=== PATIENT | male | born 1950 | race African-American/Black ===

== ENCOUNTER 2020-10-18 14:15 | Inpatient (IN) | payer MEDICARE, OTHER ==
[~2020-10-18] VITALS: Ht 165.1 cm; Wt 75.3 kg
--- NOTE | 2020-10-18 14:24 | NUR ---
pt [id number] from dialysis center from a half-way facility for altered mentation. pt was not dialized. pt arousable, respond to simple questions in tristanian. placed on monitor. stable vitals sloop captain. awaiting md greene.
--- NOTE | 2020-10-18 14:46 | NUR ---
dr bowser at bedside for eval.
--- NOTE | 2020-10-18 14:55 | NUR ---
iv line started, blood drawn and sent to lab.
[2020-10-18 15:15] LABS: POTASSIUM 3.7 mmol/L (3.5-5.1)
[2020-10-18 15:18] LABS: MAGNESIUM 2.4 mg/dL (1.8-2.4); PHOSPHORUS 7.5 mg/dL (2.5-4.9)
[2020-10-18 15:20] LABS: BASOPHILS # (AUTO) 0.1 K/uL (0.0-0.2); BASOPHILS % (AUTO) 1.9 % (0.0-2.0); EOSINOPHILS % (AUTO) 7.5 % (0.0-6.0); HEMATOCRIT 31 % (39-51); HEMOGLOBIN 9.7 g/dL (13.5-17.5); LYMPHOCYTES # (AUTO) 0.7 K/uL (0.8-4.8); LYMPHOCYTES % (AUTO) 14.7 % (20.0-44.0); MEAN CORPUSCULAR HGB CONC 32 g/dl (31.0-36.0); MEAN CORPUSCULAR VOLUME 103 fL (80-96); MONOCYTES # (AUTO) 0.6 K/uL (0.1-1.30); NEUTROPHILS # (AUTO) 2.9 K/uL (1.8-8.9); NEUTROPHILS % (AUTO) 62.9 % (43.0-81.0); PLATELET COUNT (AUTO) 179 K/uL (150-450); RED BLOOD CELL COUNT(AUTO) 2.98 MIL/uL (4.5-6.0); WHITE BLOOD COUNT (AUTO) 4.7 K/uL (4.3-11.0)
[2020-10-18 15:21] LABS: ALBUMIN 3.9 g/dL (3.4-5.0); BILIRUBIN,DIRECT 0.3 mg/dL (0.0-0.2); BILIRUBIN,TOTAL 0.7 mg/dL (0.2-1.0); TOTAL PROTEIN, SERUM 8.3 g/dL (6.4-8.2)
--- NOTE | 2020-10-18 15:26 | NUR ---
MOVE SHEET SUBMITTED AND CALLED FOR TELE BED.
[2020-10-18] MEDS ORDERED: CARV12.5 PO (15:42)
[2020-10-18] MEDS ORDERED: BISA10SU11 RC (15:42)
[2020-10-18] MEDS ORDERED: MIDO10TA PO (15:42)
[2020-10-18] MEDS ORDERED: HEPA0.5D3 IJ (15:42)
[2020-10-18] MEDS ORDERED: GABA-532 PO (15:42)
[2020-10-18] MEDS ORDERED: SUCR500T PO (15:42)
[2020-10-18] MEDS ORDERED: INSU100V10 SQ (15:42)
[2020-10-18] MEDS ORDERED: OMEP20TA5 PO (15:42)
[2020-10-18] MEDS ORDERED: LEVO125T8 PO (15:42)
[2020-10-18] MEDS ORDERED: ATOR10TA PO (15:42)
[2020-10-18] MEDS ORDERED: QUET25TA PO (15:42)
[2020-10-18] MEDS ORDERED: AMIO100T4 PO (15:42)
[2020-10-18] MEDS ORDERED: LINA5TAB PO (15:42)
[2020-10-18] MEDS ORDERED: NA P133E RC (15:42)
[2020-10-18] MEDS ORDERED: FOLI1CAP7 PO (15:42)
[2020-10-18] MEDS ORDERED: ACET325T53 PO (15:42)
[2020-10-18] MEDS ORDERED: EPOE40002 IJ (15:42)
[2020-10-18] MEDS ORDERED: ONDANSETRON HCL/PF 4 MG/2 ML VIAL IVP PRN (16:30)
[2020-10-18] MEDS ORDERED: BISACODYL SUPP (10 MG) 10 MG/SUPP.RECT SUPP.RECT RC PRN (16:30)
[2020-10-18] MEDS ORDERED: MIDODRINE HCL (5MG) 5 MG TABLET PO PRN (16:30)
[2020-10-18] MEDS ORDERED: NA PHOS,M-B/NA PHOS,DI-BA 1 EA ENEMA RC PRN (16:30)
[2020-10-18] MEDS ORDERED: EPOETIN ALFA (4000 UNIT) 4,000 UNIT/ML VIAL IJ SCH (16:30)
[2020-10-18] MEDS ORDERED: HOME MED MISCELLANEOUS XX SCH (16:30)
[2020-10-18] MEDS ORDERED: Z GUARD REMEDY 2 OZ OINT TP PRN (16:30)
[2020-10-18] MEDS ORDERED: ACETAMINOPHEN 325 MG TABLET PO PRN (16:30)
[2020-10-18] MEDS ORDERED: MAGNESIUM HYDROXIDE 30 ML UDC PO PRN (16:30)
[2020-10-18] MEDS ORDERED: MAG HYDROX/AL HYDROX/SIMETH 30 ML UDC PO PRN (16:30)
[2020-10-18] MEDS ORDERED: DEXTROSE 50%-WATER 50 ML DISP.SYRIN IV PRN (16:30)
--- NOTE | 2020-10-18 17:53 | NUR ---
tele [phone]
--- NOTE | 2020-10-18 17:59 | NUR ---
report given to amada. pt awaiting transfer t floor.
--- NOTE | 2020-10-18 19:00 | NUR ---
Patient received from ED at 1834pm. Vitals assessed and patient provided with tele box. Endorsed to oncoming shift for admission. HOB kept elevated.
[2020-10-18] MEDS: GABAPENTIN 100 MG CAPSULE PO SCH (19:42)
[2020-10-18] MEDS: SEVELAMER CARBONATE 800 MG TABLET PO SCH (19:42)
[2020-10-18] MEDS: QUETIAPINE FUMARATE 25 MG TABLET PO SCH (19:42)
[2020-10-18 20:00] VITALS: BP 120/41
--- NOTE | 2020-10-18 20:00 | NUR ---
EMERGENCY DISPATCHERBLACK LEATHER BUFFER NOTE RECEIVED PT IN BED WITH EYES CLOSED, AROUSABLE TO STIMULATION. A/O X2. PT IS CONFUSED AT TIMES, ABLE TO RESPOND TO SIMPLE QUESTIONS IN [place]. PT ON 2 LPM O2 VIA NC, SATURATING AT 95%. NO SOB OR S/S OF RESPIRATORY DISTRESS NOTED. PT ON EXTERNAL GROUNDSKEEPER PORTER READING SR AT 70 BPM. PT HAS NO C/O PAIN OR DISCOMFORT AT THIS TIME. IV ACCESS IN RIGHT AC #18, INTACT AND PATENT. PT NOTED WITH LEFT UPPER ARM SHUNT. SAFETY MEASURES MAINTAINED. BED IN LOWEST LOCKED POSITION, HOB ELEVATED, SIDE RAILS UP X2. CALL LIGHT AND TABLE WITHIN REACH. WILL CONTINUE TO MONITOR.
[2020-10-18] MEDS: PIPERACILLIN /TAZOBACTAM 2.25 G in IV D5W 50 ML IV SCH (20:24)
[2020-10-18] MEDS: HEPARIN SODIUM, PORCINE 5000 UNITS/1 ML VIAL SQ SCH (20:26)
[2020-10-18] MEDS: CARVEDILOL 12.5 MG TABLET PO SCH (20:28)
[2020-10-18] MEDS: BLOOD SUGAR DIAGNOSTIC 1 EACH STRIP IN SCH (22:00)
[2020-10-19] VITALS: BP 140/30
--- NOTE | 2020-10-19 03:30 | NUR ---
TRANSFERRED PT TO [facility] AND GAVE BEDSIDE REPORT FOR LUIGI.
[2020-10-19 04:00] VITALS: BP 135/40
[2020-10-19] MEDS: PIPERACILLIN /TAZOBACTAM 2.25 G in IV D5W 50 ML IV SCH ×3 (04:40→20:26)
--- NOTE | 2020-10-19 05:22 | NUR ---
RN notes Received from RN KVNG in bed resting comfortably. No distress noted. Breathing even and unlabored. On 2lpm via nasal cannula tolerating well. No physical manifestation of pain or discomfort. Kept clean and dry. Will endorse to next shift for continuity of care.
[2020-10-19 06:51] LABS: BASOPHILS # (AUTO) 0.1 K/uL (0.0-0.2); BASOPHILS % (AUTO) 1.8 % (0.0-2.0); EOSINOPHILS % (AUTO) 7.1 % (0.0-6.0); HEMATOCRIT 31 % (39-51); HEMOGLOBIN 9.9 g/dL (13.5-17.5); LYMPHOCYTES # (AUTO) 0.7 K/uL (0.8-4.8); LYMPHOCYTES % (AUTO) 14.1 % (20.0-44.0); MEAN CORPUSCULAR HGB CONC 32 g/dl (31.0-36.0); MEAN CORPUSCULAR VOLUME 103 fL (80-96); MONOCYTES # (AUTO) 0.5 K/uL (0.1-1.30); MONOCYTES % (AUTO) 11.3 % (2.0-12.0); NEUTROPHILS # (AUTO) 3.2 K/uL (1.8-8.9); NEUTROPHILS % (AUTO) 65.7 % (43.0-81.0); PLATELET COUNT (AUTO) 176 K/uL (150-450); RED BLOOD CELL COUNT(AUTO) 3.01 MIL/uL (4.5-6.0); WHITE BLOOD COUNT (AUTO) 4.9 K/uL (4.3-11.0)
[2020-10-19 06:53] LABS: CALCIUM, SERUM 9.1 mg/dL (8.5-10.1); MAGNESIUM 2.6 mg/dL (1.8-2.4); POTASSIUM 3.7 mmol/L (3.5-5.1)
[2020-10-19 06:56] LABS: THYROID STIMULATING HORMONE 9.369 uIU/mL (0.358-3.74)
--- NOTE | 2020-10-19 07:20 | NUR ---
RN OPENING NOTES RECEIVED PT IN BED, A/O X2. CONFUSED AT TIMES, ABLE TO FOLLOW SIMPLE COMMANDS. UNDERSTANDS TRINIDADIAN. ON 2L O2 VIA NC, SATURATING @95%. NO SOB OR ANY S/S OF RESPIRATORY DISTRESS NOTED. TELE MONITOR READING SR. NO PAIN REPORTED AT THIS TIME. IV ACCESS ON RAC #18, INTACT, PATENT AND FLUSHED. SETH SHUNT NOTED. SAFETY MEASURES IMPLEMENTED. CALL LIGHT WITHIN REACH. BED LOCKED AND IN LOWEST POSITION WITH SIDE RAILS UP X2. BED ALARM ON. WILL CONTINUE TO MONITOR.
[2020-10-19 07:45] LABS: CREATININE 7.6 mg/dL (0.6-1.3)
[2020-10-19 08:00] VITALS: BP 109/44
--- NOTE | 2020-10-19 08:00 | NUR ---
RN NOTES BS OF 75, NO INSULIN COVERAGE.
[2020-10-19] MEDS: ASPIRIN 81 MG TAB.CHEW PO SCH (08:53)
[2020-10-19] MEDS: SEVELAMER CARBONATE 800 MG TABLET PO SCH ×3 (08:53→17:55)
[2020-10-19] MEDS: VIT B CMPLX 3/FA/VIT C/BIOTIN 1 TAB TABLET PO SCH (08:54)
[2020-10-19] MEDS: GABAPENTIN 100 MG CAPSULE PO SCH ×3 (08:54→17:00)
[2020-10-19] MEDS: PANTOPRAZOLE 40 MG TABLET.DR PO SCH (08:54)
[2020-10-19] MEDS: LINAGLIPTIN 5 MG TABLET PO SCH (08:54)
[2020-10-19] MEDS: ATORVASTATIN 10 MG TABLET PO SCH (08:54)
[2020-10-19] MEDS: QUETIAPINE FUMARATE 25 MG TABLET PO SCH ×2 (08:54→17:00)
[2020-10-19] MEDS: LEVOTHYROXINE SODIUM 125 MCG TABLET PO SCH (08:54)
[2020-10-19] MEDS: CARVEDILOL 12.5 MG TABLET PO SCH ×2 (09:00→21:00)
[2020-10-19] MEDS: AMIODARONE HCL 200 MG TABLET PO SCH (09:00)
[2020-10-19] MEDS: BLOOD SUGAR DIAGNOSTIC 1 EACH STRIP IN SCH ×4 (09:08→21:55)
[2020-10-19] MEDS: HEPARIN SODIUM, PORCINE 5000 UNITS/1 ML VIAL SQ SCH ×2 (09:12→21:40)
--- NOTE | 2020-10-19 09:30 | NUR ---
RN NOTES SWALLOW EVAL DONE AT BEDSIDE WITH SPEECH THERAPIST. PT SPITS OUT WATER AND APPLE SAUCE. TRIED GIVING MEDS CRUSHED IN PUDDING PT SPITS OUT EVERYTHING.
[2020-10-19 12:00] VITALS: BP 154/60
--- NOTE | 2020-10-19 12:00 | NUR ---
RN NOTES ND REFUSED ACCU CHECK. RISK AND BENEFITS EXPLAINED, STILL REFUSED.
--- NOTE | 2020-10-19 12:30 | NUR ---
RN NOTES PT WILL START HD, WILL GIVE ZOSYN AFTER HD.
--- NOTE | 2020-10-19 13:00 | NUR ---
RN NOTES PT SPITS OUT MEDICATION.
--- NOTE | 2020-10-19 13:20 | NUR ---
RN NOTES PT STARTED HD, VS STABLE.
--- NOTE | 2020-10-19 15:00 | NUR ---
RN NOTES AT 1430 PT BP DROPPED TO 78/27, HD RN GAVE 200ML BOLUS. BP WENT UP TO 81/26. AT 1445 PT SUDDENLY PASSED OUT, UNRESPONSIVE AND PULSELESS. BP OF 97/29. INITIATED CODE BLUE AND STARTED CPR. CODE BLUE TEAM ARRIVED. BLOOD SUGAR CHECKED, 104. PT BECAME AWAKE AND RESPONSIVE AFTER 2 CYCLES OF CPR. PT ON 15L O2 VIA NRB, O2 SAT OF 100%, SWITCHED TO NASAL CANNULA 4L, O2 SAT @99%. VS STABLE. TELE MONITOR IN PLACE, READS SR. DR. EVERETT IVY ORDERED RESTRAINTS FOR PT PULLING OUT IV. WILL CONTINUE TO MONITOR.
[2020-10-19 16:00] VITALS: BP 99/51
--- NOTE | 2020-10-19 19:12 | NUR ---
RN NOTES PT RESTING IN BED. ON 4L O2 VIA NC, NO SOB OR ANY DISTRESS NOTED. NO PAIN REPORTED AT THIS TIME. REFUSED MEDS. NEEDS ATTENDED. KEPT CLEAN AND COMFORTABLE. SAFETY MEASURES IN PLACE. WILL ENDORSE TO NIGHT RN FOR LUIGI.
--- NOTE | 2020-10-19 19:30 | NUR ---
RN OPENING NOTES: RECEIVED PT A/OX2 IN BED SLEEPING COMFORTABLY. PATIENT IN NO S/SX OF ACUTE DISTRESS AT THIS TIME. NO SOB NOTED. PATIENT'S BREATHING IS EVEN AND UNLABORED. PATIENT IS ON 4L OF OXYGEN VIA NC; TOLERATING WELL. PATIENT ON TELE MONITORING READING SINUS RHYTHM HR IS @60s AT THE TIME OF RECEIVED. PATIENT ON RENAL STANDARD DIET; TOLERATES WELL. NOTED IV SITE ON R AC #18 ; PATENT, INTACT AND FLUSHING WELL; NO S/S OF INFECTION OR INFILTRATION. PT ALSO HAS L UA AV SHUNT SECURED AND INTACT NO SIGNS OF INFECTION. WITH BILATERAL SOFT RESTRAINTS IN PLACED, MONITORED AND ASSESSED PER PROTOCOL. SAFETY MEASURES HAVE BEEN PROVIDED AND IMPLEMENTED. PATIENT BED ALARM IS ON. HEAD OF BED ELEVATED. BED IS LOCKED, IN LOWEST POSITION AND SIDE RAILS UP. CALL LIGHT WITHIN REACH OF THE PATIENT. APPLICABLE ISOLATION PRECAUTIONS IN PLACE. WILL CONTINUE TO MONITOR AND REASSESS FOR ANY CHANGES AND WILL CARRY OUT ANY ONGOING AND ACTIVE MD ORDER.
[2020-10-19 20:00] VITALS: BP 90/52
[2020-10-19] MEDS: INSULIN REGULAR, HUMAN 100 UNIT/ML 3 ML VIAL SQ PRN (21:55)
--- NOTE | 2020-10-19 23:00 | NUR ---
RN NOTES PATIENT REMAINED TO BE IN NO SIGNS OF ACUTE RESPIRATORY DISTRESS , VITAL SIGNS WNL AT THIS TIME. SMOKE ROOM OPERATOR MADE AWARE. WILL CONTINUE TO MONITOR AND REASSESS FOR ANY CHANGES THROUGHOUT THE SHIFT.
[2020-10-20] VITALS (9 sets, daily range): BP systolic 66–134; BP diastolic 33–58
[2020-10-20] MEDS: PIPERACILLIN /TAZOBACTAM 2.25 G in IV D5W 50 ML IV SCH ×3 (03:53→20:07)
--- NOTE | 2020-10-20 04:00 | NUR ---
RN NOTES NO NOTED CHANGES IN PATIENT CONDITION AT THIS TIME; PATIENT VITALS STABLE, NO SIGNS OF ACUTE RESPIRATORY DISTRESS. AM PATIENT CARE RENDERED. PIANO MECHANIC MADE AWARE. WILL CONTINUE TO MONITOR AND REASSESS FOR ANY CHANGES THROUGHOUT THE SHIFT.
--- NOTE | 2020-10-20 07:07 | NUR ---
RN CLOSING NOTE: PATIENT REMAINS IN ROOM IN NO SIGNS OF RESPIRATORY DISTRESS, PATIENT STILL ON 4L OF 02 VIA NC ;TOLERATING WELL SATURATING @ >95% SP02. SAFETY MEASURES IMPLEMENTED, BED IN LOWEST POSITION, LOCKED, SIDE RAILS UP, CALL LIGHT WITHIN REACH. ALL NEEDS AND ORDERS ADDRESSED DURING THE SHIFT. IV ACCESS MAINTAINED INTACT, SECURED AND FLUSHING WELL. ALL DUE MEDS GIVEN ORDERED & SCHEDULED ; PATIENT TOLERATED WELL. PATIENT KEPT CLEAN AND COMFORTABLE WITHIN THE SHIFT. PATIENT ENDORSED TO INCOMING SHIFT RN WITH STABLE VITAL SIGN AND FOR CONTINUITY OF CARE.
--- NOTE | 2020-10-20 07:46 | NUR ---
POLICE INVESTIGATOR NOTES PATIENT IN BED ALERT/AWAKE WITH SOME CONFUSION. ON 3L N/C, NO SOB NOTED AT THIS TIME. PATIENT ON TELE MONITOR HR 70. PATIENT IS ON SOFT RESTRAINTS, CIRCULATION CHECKS, SKIN WARM AND DRY. LEFT AC HEP LOCK IN TACT AND IN PLACE, LEFT UPPER ARM AV SHUNT. BED LOCKED, IN LOWEST POSITION, CALL LIGHT WITHIN REACH, SAFETY MEASURES OBSERVED. WILL CONTINUE TO MONITOR CLOSELY.
[2020-10-20 08:14] LABS: CALCIUM, SERUM 8.9 mg/dL (8.5-10.1); POTASSIUM 3.7 mmol/L (3.5-5.1)
[2020-10-20] MEDS: LINAGLIPTIN 5 MG TABLET PO SCH (09:00)
[2020-10-20] MEDS: PANTOPRAZOLE 40 MG TABLET.DR PO SCH (09:09)
[2020-10-20] MEDS: ASPIRIN 81 MG TAB.CHEW PO SCH (09:09)
[2020-10-20] MEDS: QUETIAPINE FUMARATE 25 MG TABLET PO SCH (09:10)
[2020-10-20] MEDS: VIT B CMPLX 3/FA/VIT C/BIOTIN 1 TAB TABLET PO SCH (09:10)
[2020-10-20] MEDS: ATORVASTATIN 10 MG TABLET PO SCH (09:10)
[2020-10-20] MEDS: CARVEDILOL 12.5 MG TABLET PO SCH ×2 (09:13→21:15)
[2020-10-20] MEDS: GABAPENTIN 100 MG CAPSULE PO SCH ×3 (09:13→16:32)
[2020-10-20] MEDS: SEVELAMER CARBONATE 800 MG TABLET PO SCH ×3 (09:14→16:57)
[2020-10-20] MEDS: AMIODARONE HCL 200 MG TABLET PO SCH (09:15)
[2020-10-20] MEDS: HEPARIN SODIUM, PORCINE 5000 UNITS/1 ML VIAL SQ SCH ×2 (09:17→21:16)
[2020-10-20] MEDS: LEVOTHYROXINE SODIUM 125 MCG TABLET PO SCH (09:18)
[2020-10-20] MEDS: BLOOD SUGAR DIAGNOSTIC 1 EACH STRIP IN SCH ×4 (09:19→22:06)
--- NOTE | 2020-10-20 09:19 | NUR ---
CERTIFIED WELLNESS PROGRAM MANAGER NOTE BLOOD SUGAR 71 MG\ DL WILL HOLD TRADJENTA, WILL INFORM , PT DONE ,ABLE TO STANDS UP WITH MAX ASSISTANCE WILL MONITOR
--- NOTE | 2020-10-20 10:44 | NUR ---
FIELD SERVICE REPRESENTATIVE NOTES SPOKE WITH JUAN RN, CROZE MACHINE OPERATOR. AWARE B/S 71. OKAY TO D/C SAPPHIRE
--- NOTE | 2020-10-20 13:11 | NUR ---
NCQA SPECIALIST NOTE FACE TO FACE ASSESSMENT DONE SPOKE WITH JUAN RN LOAD PLANNER ALSO AT BEDSIDE OK TO RENEW SOFT RESTRAIN
--- NOTE | 2020-10-20 14:00 | NUR ---
SALES AGENT NOTE PER JUAN RN COLOR CHECKER OK TO PLACE ON 2L NC, NO SOB NOTED ,WILL CONT TO MONITOR
--- NOTE | 2020-10-20 15:48 | NUR ---
patient become altered sbp 60's,blood sugar 120,nadege dude ranch manager notified,ns 500ml bolus given as ordered.
--- NOTE | 2020-10-20 15:51 | NUR ---
more alert once ns bolus started,sbp 90's.
[2020-10-20] MEDS ORDERED: IV NS 0.9% 500 ML IV ONE (16:00)
--- NOTE | 2020-10-20 17:11 | NUR ---
MOLD SHIFTER NOTES PT CALM AND COOPERATIVE. NOT TRYING TO REMOVE ANY LINES. JUAN DNP AWARE. OK TO D/C RESTRAINTS.
--- NOTE | 2020-10-20 18:41 | NUR ---
KOSHER DIETARY SERVICE SUPERVISOR NOTES PT ON 4L N/C. PT ALERT WITH CONFUSION. RIGHT AC IN TACT, FLUSHING WELL. BED IN LOW LOCKED POSITION. PLAN OF CARE DISCUSSED WITH PATIENT. CALL LIGHT WITHIN REACH. WILL CONTINUE TO MONITOR.
--- NOTE | 2020-10-20 19:00 | NUR ---
RN NOTE RECEIVED PATIENT IN BED SLEEPING ALERT CONFUSED ON TELE MONITORING ON 4L OXYGEN VIA NASAL CANNULA, O2:96% IV SITE IS ON RIGHT AC INTACT PATENT AND LEFT UPPER ARM AV FOR HEMODIALYSIS,INCONTINENT TO BOWEL/BLADDER,SAFETY MEASURE IMPLEMENT,BED IN LOW POSITION AND LOCKED,CONTINUE TO MONITOR.
[2020-10-20] MEDS: INSULIN REGULAR, HUMAN 100 UNIT/ML 3 ML VIAL SQ PRN (22:09)
[2020-10-21] VITALS: BP 140/59
[2020-10-21] MEDS: PIPERACILLIN /TAZOBACTAM 2.25 G in IV D5W 50 ML IV SCH ×2 (03:47→11:30)
[2020-10-21 04:00] VITALS: BP 130/52
--- NOTE | 2020-10-21 06:50 | NUR ---
RN NOTE PATIENT REMAINS ON ALERT CONFUSED ON 4L OXYGEN VIA NASAL CANNULA,NO SOB NOT ACUTE DISTRESS NOTED ALL DUE MEDS GIVEN MD ORDERED KEPT CLEAN AND DRY ALL THE TIME,KEPT COMFORTABLE ALL NEEDS MET ENDORSE NEXT COMING SHIFT FOR CONTINUATION OF CARE.
[2020-10-21 06:59] LABS: BASOPHILS # (AUTO) 0.1 K/uL (0.0-0.2); BASOPHILS % (AUTO) 1.4 % (0.0-2.0); EOSINOPHILS % (AUTO) 4.6 % (0.0-6.0); HEMATOCRIT 27 % (39-51); HEMOGLOBIN 8.8 g/dL (13.5-17.5); LYMPHOCYTES # (AUTO) 0.7 K/uL (0.8-4.8); LYMPHOCYTES % (AUTO) 13.2 % (20.0-44.0); MEAN CORPUSCULAR HGB CONC 33 g/dl (31.0-36.0); MEAN CORPUSCULAR VOLUME 103 fL (80-96); MONOCYTES # (AUTO) 0.6 K/uL (0.1-1.30); MONOCYTES % (AUTO) 11.4 % (2.0-12.0); NEUTROPHILS # (AUTO) 3.6 K/uL (1.8-8.9); NEUTROPHILS % (AUTO) 69.4 % (43.0-81.0); PLATELET COUNT (AUTO) 164 K/uL (150-450); RED BLOOD CELL COUNT(AUTO) 2.61 MIL/uL (4.5-6.0); WHITE BLOOD COUNT (AUTO) 5.2 K/uL (4.3-11.0)
[2020-10-21 07:27] LABS: CALCIUM, SERUM 8.5 mg/dL (8.5-10.1); POTASSIUM 3.9 mmol/L (3.5-5.1)
--- NOTE | 2020-10-21 07:30 | NUR ---
BISQUE KILN DRAWER AM NOTES PATIENT IN BED ALERT/AWAKE WITH SOME CONFUSION. ON 4L N/C, O2 SAT AT 98%, NO SOB NOTED AT THIS TIME. NO DISTRESS. SINUS RHYTHM MONITOR HR 70.NO SIGNS OF PAIN, NO GRIMACINGS. PATIENT IS ON SOFT RESTRAINTS, CIRCULATION CHECKS, WILL RELEASE EVERY 2 HOURS. SKIN WARM AND DRY. RIGHT AC #18, FLUSHES WELL SITE CLEAR. LEFT UPPER ARM AV SHUNT. THRILL PRESENT. BED LOCKED, IN LOWEST POSITION, CALL LIGHT WITHIN REACH, SAFETY MEASURES OBSERVED. WILL CONTINUE TO MONITOR CLOSELY.
[2020-10-21 07:40] LABS: CREATININE 8.6 mg/dL (0.6-1.3)
[2020-10-21] MEDS: BLOOD SUGAR DIAGNOSTIC 1 EACH STRIP IN SCH ×3 (07:45→17:06)
[2020-10-21] MEDS: SEVELAMER CARBONATE 800 MG TABLET PO SCH ×3 (07:45→17:13)
[2020-10-21] MEDS: LEVOTHYROXINE SODIUM 125 MCG TABLET PO SCH (07:45)
[2020-10-21 08:00] VITALS: BP 124/50
[2020-10-21] MEDS: CARVEDILOL 12.5 MG TABLET PO SCH (08:35)
[2020-10-21] MEDS: PANTOPRAZOLE 40 MG TABLET.DR PO SCH (08:35)
[2020-10-21] MEDS: ASPIRIN 81 MG TAB.CHEW PO SCH (08:35)
[2020-10-21] MEDS: VIT B CMPLX 3/FA/VIT C/BIOTIN 1 TAB TABLET PO SCH (08:35)
[2020-10-21] MEDS: GABAPENTIN 100 MG CAPSULE PO SCH ×3 (08:35→17:13)
[2020-10-21] MEDS: ATORVASTATIN 10 MG TABLET PO SCH (08:35)
[2020-10-21] MEDS: AMIODARONE HCL 200 MG TABLET PO SCH (08:36)
[2020-10-21] MEDS: HEPARIN SODIUM, PORCINE 5000 UNITS/1 ML VIAL SQ SCH (08:37)
--- NOTE | 2020-10-21 09:30 | NUR ---
RN NOTES DUE MEDS GIVEN
[2020-10-21] MEDS ORDERED: NEPRO VAN 237 ML CAN PO PRN (10:30)
[2020-10-21 12:00] VITALS: BP 85/58
[2020-10-21] MEDS ORDERED: EPOETIN ALFA (4000 UNIT) 4,000 UNIT/ML VIAL SQ SCH (15:00)
--- NOTE | 2020-10-21 15:00 | NUR ---
RN NOTES MARIANNE ARNDT HD NURSE AT BEDSIDE.
[2020-10-21 16:00] VITALS: BP 133/60
--- NOTE | 2020-10-21 17:45 | NUR ---
RN NOTES REPORT GIVEN TO LEATHA LOCKHART AT FACILITY STAFF. PATIENT TO BE PICKED UP BY AMBULANCE AT 1900
--- NOTE | 2020-10-21 18:31 | NUR ---
RN NOTES PATIENT TO BE DISCHARGED TO [facility] TODAY PER MD IN STABLE CONDITION. PROVIDED DC INSTRUCTIONS, MED RECON LIST AND HEALTH TEACHINGS. PATIENT UNABLE TO UNDERSTAND INSTRUCTIONS. PATIENT TO FOLLOW UP WITH PCP IN 1 WEEK OR PER FACILITY PROTOCOL. SKIN INTACT. WITH RIGHT AC G [address] TO CONTINUE IV ANTIBIOTIC [ZOSYN] FOR 5 DAYS MORE. LEFT UPPER ARM AV SHUNT WITH [employer] DRESSING. POST HD TODAY WITH 1.5 L OUTPUT. NO BELONGINGS. ALL PAPERWORKS SIGNED BY 2 NURSES. REPORT GIVEN TO [facility] FACILITY STAFF EARLIER. WILL BE PICKED UP BY AMBULANCE FOR TRANSPORT AT 1900
== END 2020-10-21 19:19 | DRG 280 ==
LOC: ER 14:18 → TELE1 18:14 → MEDSG1 10-19 13:11 → TELE1 10-19 14:49
PROVIDERS: ADMIT Nurse Practitioner Acute Care; ATTEND Nurse Practitioner Acute Care
PROC: 5A1D70Z Performance of Urinary Filtration, Intermittent, Less than 6 Hours Per Day (ICD-10-PCS; principal; 2020-10-18)
DX: I13.2 Hypertensive heart and chronic kidney disease with heart failure and with stage 5 chronic kidney disease, or end stage renal disease (principal); J15.9 Unspecified bacterial pneumonia; I21.A1 Myocardial infarction type 2; G93.41 Metabolic encephalopathy; N18.6 End stage renal disease; E44.1 Mild protein-calorie malnutrition; E11.22 Type 2 diabetes mellitus with diabetic chronic kidney disease; Z99.2 Dependence on renal dialysis; Z20.822 Contact with and (suspected) exposure to COVID-19; D63.1 Anemia in chronic kidney disease; K72.90 Hepatic failure, unspecified without coma; I50.9 Heart failure, unspecified; I48.0 Paroxysmal atrial fibrillation; Z79.4 Long term (current) use of insulin; Z79.899 Other long term (current) drug therapy; E78.5 Hyperlipidemia, unspecified; M89.9 Disorder of bone, unspecified; E03.9 Hypothyroidism, unspecified; D53.9 Nutritional anemia, unspecified; I67.2 Cerebral atherosclerosis; Z79.890 Hormone replacement therapy; Z86.79 Personal history of other diseases of the circulatory system; F29 Unspecified psychosis not due to a substance or known physiological condition
CPT/HCPCS: 36415; 70450-TC; 71045-TC; 80048-TC; 80061-TC; 80076-TC; 82140-TC; 82962-TC; 83605-TC; 83735-TC; 84100-TC; 84443-TC; 84484-TC; 85025-TC; 86706; 87040-TC; 87081-TC; 87340; 92526; 92611-TC; 93307-TC; 97116-TC; 97530-TC; G0378; J0885; J1644; J1815; J2543; J7030; J7040; J7060; U0003

== ENCOUNTER 2020-10-26 16:11 | Inpatient (IN) | payer MEDICARE, OTHER ==
[~2020-10-26] VITALS: Ht 165.1 cm; Wt 79.8 kg
[~2020-10-26 16:11] MED LIST: ACET325T53 PO; AMIO100T4 PO; ATOR10TA PO; BISA10SU11 RC; CARV12.5 PO; EPOE40002 IJ; FOLI1CAP7 PO; GABA-532 PO; HEPA0.5D3 IJ; INSU100V10 SQ; LEVO125T8 PO; LINA5TAB PO; MIDO10TA PO; NA P133E RC; OMEP20TA5 PO; QUET25TA PO; SUCR500T PO
--- NOTE | 2020-10-26 16:25 | NUR ---
FUGITIVE INVESTIGATOR NOTES DIRECT ADMIT FROM [place] [place], DX AMS, PNEUMONIA BY DR. DUKE ROJAS , ALERT X 2 WITH PERIODS OF CONFUSION, MONGOLIAN SPEAKING, ON 2L OXYGEN NASAL CANULA, SATTING 100%, NO SOB, RESPIRATION UNLABORED, SINUS MISAEL ON MONITOR, HR 55, DENIES CHEST PAIN OR DISCOMFORT, IV ACCESS ELIZ G22 AND RT HAND G 22 BOTH FLUSHES WELL, BOTH SITES CLEAR. LEFT AV SHUNT THRILL PRESENT ON PALPATION. NO OPEN WOUNDS, DISCOLORATION PRESENT ON BLE. PHOTOS TAKEN. UNIT ORIENTATION AND USE OF CALL LIGHT. NEEDS REPETITIVE INSTRUCTIONS. SAFETY MEASURE IN PLACE. BED LOW LOCKED. WILL CONT TO MONITOR.
[2020-10-26] MEDS ORDERED: INSU100V39 SQ (16:55)
[2020-10-26] MEDS ORDERED: ACETAMINOPHEN 325 MG TABLET PO PRN ×2 (17:00)
[2020-10-26] MEDS ORDERED: DEXTROSE 50%-WATER 50 ML DISP.SYRIN IV PRN (17:00)
[2020-10-26] MEDS ORDERED: BISACODYL SUPP (10 MG) 10 MG/SUPP.RECT SUPP.RECT RC PRN (17:00)
[2020-10-26] MEDS: CARVEDILOL 12.5 MG TABLET PO SCH (17:00)
[2020-10-26] MEDS ORDERED: MAG HYDROX/AL HYDROX/SIMETH 30 ML UDC PO PRN (17:00)
[2020-10-26] MEDS ORDERED: HYDROCODONE/APAP 5/325MG TABLET PO PRN (17:00)
[2020-10-26] MEDS ORDERED: ONDANSETRON HCL/PF 4 MG/2 ML VIAL IVP PRN (17:00)
[2020-10-26] MEDS ORDERED: NA PHOS,M-B/NA PHOS,DI-BA 1 EA ENEMA RC PRN (17:00)
[2020-10-26] MEDS ORDERED: MAGNESIUM HYDROXIDE 30 ML UDC PO PRN (17:00)
[2020-10-26] MEDS ORDERED: Z GUARD REMEDY 2 OZ OINT TP PRN (17:00)
[2020-10-26] MEDS: IV 1/2NS 1000 ML 1,000 ML IV PRN (17:51)
[2020-10-26] MEDS: BLOOD SUGAR DIAGNOSTIC 1 EACH STRIP IN SCH ×2 (18:02→21:20)
[2020-10-26] MEDS: INSULIN REGULAR, HUMAN 100 UNIT/ML 3 ML VIAL SQ PRN (18:08)
[2020-10-26] MEDS: GABAPENTIN 100 MG CAPSULE PO SCH (18:10)
--- NOTE | 2020-10-26 18:51 | NUR ---
RN NOTES ALL NEEDS MET AT THIS TIME. PATIENT RESTING COMFORTABLY. ALL ADMIT ORDERS CARRIED OUT. 1/2 NS AT 75 ML/HR RUNNING, SITE CLEAR. NOT IN ANY DISTRESS. CALL LIGHT WITHIN REACH. WILL ENDORSE TO NEXT SHIFT FOR LUIGI.
--- NOTE | 2020-10-26 19:58 | NUR ---
RN OPENING NOTE RECEIVED PT AWAKE IN BED. A/O X2 WITH PERIODS OF CONFUSION. PT IS JAPANESE-SPEAKING. PT ON 2LPM O2 VIA NC, SATTING AT 100%. NO SOB OR S/S OF RESPIRATORY DISTRESS NOTED. PT ON EXTERNAL MACROECONOMICS PROFESSOR READING SINUS MISAEL AT 55 BPM. PT HAS NO C/O PAIN OR DISCOMFORT AT THIS TIME. IV ACCESS IN ELIZ #22 AND RIGHT HAND #22, BOTH INTACT AND PATENT. LEFT AV SHUNT THRILL PRESENT ON PALPATION. SAFETY MEASURES MAINTAINED. BED IN LOWEST LOCKED POSITION, HOB ELEVATED, SIDE RAILS UP X3. CALL LIGHT AND TABLE WITHIN REACH. WILL CONTINUE WITH PLAN OF CARE.
[2020-10-26 19:59] LABS: ALANINE AMINOTRANSFERASE 16 U/L (12-78); ALBUMIN 2.7 g/dL (3.4-5.0); ALKALINE PHOSPHATASE 105 U/L (46-116); ASPARTATE AMINOTRANSFERASE 19 U/L (15-37); BILIRUBIN,TOTAL 0.4 mg/dL (0.2-1.0); CALCIUM, SERUM 8.7 mg/dL (8.5-10.1); CARBON DIOXIDE 28 mmol/L (21-32); CHLORIDE 99 mmol/L (98-107); CHOLESTEROL 107 mg/dL (<200); GLUCOSE 138 mg/dL (74-106); HDL CHOLESTEROL 30 mg/dL (40-60); LDL 59 mg/dL (0-99); MAGNESIUM 2.4 mg/dL (1.8-2.4); PHOSPHORUS 7.3 mg/dL (2.5-4.9); POTASSIUM 4.4 mmol/L (3.5-5.1); SODIUM SERUM 142 mmol/L (136-145); THYROID STIMULATING HORMONE 11.765 uIU/mL (0.358-3.74); TOTAL PROTEIN, SERUM 7.1 g/dL (6.4-8.2); TRIGLYCERIDES 78 mg/dL (30-150); UREA NITROGEN, BLOOD 52 mg/dL (7-18)
[2020-10-26 20:00] VITALS: BP 112/40
--- NOTE | 2020-10-26 20:06 | NUR ---
RECEIVED LAB VALUE FOR CREATININE 7.8. LAB VALUE REPORTED BY [facility]. READ BACK PROVIDED. MARY, CHARGE NURSE AND DR. BAUTISTA MADE AWARE. INFORMED DR THAT PT IS ON HEMODIALYSIS FOR ESRD. NO NEW ORDERS AT THIS TIME. WILL CONTINUE TO MONITOR.
[2020-10-26 20:08] LABS: CREATININE 7.8 mg/dL (0.6-1.3)
[2020-10-26 20:48] LABS: BASOPHILS # (AUTO) 0.1 K/uL (0.0-0.2); BASOPHILS % (AUTO) 1.3 % (0.0-2.0); EOSINOPHILS % (AUTO) 3.1 % (0.0-6.0); HEMATOCRIT 24 % (39-51); HEMOGLOBIN 7.7 g/dL (13.5-17.5); LYMPHOCYTES # (AUTO) 0.6 K/uL (0.8-4.8); LYMPHOCYTES % (AUTO) 10.5 % (20.0-44.0); MEAN CORPUSCULAR HGB CONC 32 g/dl (31.0-36.0); MEAN CORPUSCULAR VOLUME 104 fL (80-96); MONOCYTES # (AUTO) 0.8 K/uL (0.1-1.30); MONOCYTES % (AUTO) 13.5 % (2.0-12.0); NEUTROPHILS % (AUTO) 71.6 % (43.0-81.0); PLATELET COUNT (AUTO) 185 K/uL (150-450); RED BLOOD CELL COUNT(AUTO) 2.32 MIL/uL (4.5-6.0); WHITE BLOOD COUNT (AUTO) 5.6 K/uL (4.3-11.0)
[2020-10-26] MEDS: INSULIN GLARGINE, 100 UNIT/ML CARTRIDGE SQ SCH (21:22)
[2020-10-27] VITALS: BP 115/26
[2020-10-27 04:00] VITALS: BP 100/37
--- NOTE | 2020-10-27 06:18 | NUR ---
RN CLOSING NOTE PT IS AWAKE IN BED. A/O X2 WITH PERIODS OF CONFUSION. PT IS GERMAN-SPEAKING. PT ON 2LPM O2 VIA NC, SATTING AT 99%. NO SOB OR S/S OF RESPIRATORY DISTRESS NOTED. PT ON EXTERNAL FARM TRUCK DRIVER READING SINUS MISAEL AT 59 BPM. PT HAS NO C/O PAIN OR DISCOMFORT AT THIS TIME. IV ACCESS IS INTACT, PATENT, AND FLUSHING WELL. LEFT AV SHUNT THRILL PRESENT ON PALPATION. ALL NEEDS HAVE BEEN MET. SAFETY PRECAUTIONS MAINTAINED AT ALL TIMES. BED IN LOWEST LOCKED POSITION, HOB ELEVATED, SIDE RAILS UP X3. CALL LIGHT AND TABLE WITHIN REACH. WILL ENDORSE TO ONCOMING NURSE FOR LUIGI.
--- NOTE | 2020-10-27 07:15 | NUR ---
RN OPENING NOTE Received patient comfortably resting in bed, A/O x2 to self and place. Patient is able to verbalize needs, is Mongolian-speaking. No SOB, denies pain and discomfort, VS stable at this time, no s/sx of respiratory distress. IV access on Right hand and RUE intact and patent and flushing well. Left AV shunt intact with present Thrill and Bruit. Call light within easy reach, bed locked and is at lowest level. Will continue to monitor.
[2020-10-27 08:00] VITALS: BP 132/46
[2020-10-27] MEDS ORDERED: VANCOMYCIN 1 GM in IV D5W 250ml IV ONE (08:00)
[2020-10-27] MEDS: BLOOD SUGAR DIAGNOSTIC 1 EACH STRIP IN SCH ×4 (08:21→21:48)
[2020-10-27] MEDS ORDERED: VANCOMYCIN POST DIALYSIS 500MG IV PRN (08:30)
[2020-10-27 08:44] LABS: BASOPHILS # (AUTO) 0.1 K/uL (0.0-0.2); EOSINOPHILS % (AUTO) 2.7 % (0.0-6.0); HEMATOCRIT 25 % (39-51); HEMOGLOBIN 7.9 g/dL (13.5-17.5); LYMPHOCYTES # (AUTO) 0.8 K/uL (0.8-4.8); LYMPHOCYTES % (AUTO) 13.7 % (20.0-44.0); MEAN CORPUSCULAR HGB CONC 31 g/dl (31.0-36.0); MEAN CORPUSCULAR VOLUME 105 fL (80-96); MONOCYTES # (AUTO) 0.9 K/uL (0.1-1.30); MONOCYTES % (AUTO) 14.9 % (2.0-12.0); NEUTROPHILS % (AUTO) 67.7 % (43.0-81.0); PLATELET COUNT (AUTO) 200 K/uL (150-450); RED BLOOD CELL COUNT(AUTO) 2.39 MIL/uL (4.5-6.0); WHITE BLOOD COUNT (AUTO) 5.9 K/uL (4.3-11.0)
[2020-10-27 08:50] LABS: CALCIUM, SERUM 8.8 mg/dL (8.5-10.1); MAGNESIUM 2.6 mg/dL (1.8-2.4); PHOSPHORUS 7.7 mg/dL (2.5-4.9); POTASSIUM 4.2 mmol/L (3.5-5.1)
[2020-10-27 08:56] LABS: CREATININE 8.2 mg/dL (0.6-1.3)
[2020-10-27] MEDS: HEPARIN SODIUM, PORCINE 5000 UNITS/1 ML VIAL SQ SCH ×2 (09:00→21:00)
[2020-10-27] MEDS ORDERED: VANCOMYCIN 500 MG in IV D5W 100ml IV ONE (09:00)
[2020-10-27] MEDS: CARVEDILOL 12.5 MG TABLET PO SCH ×2 (09:00→17:00)
[2020-10-27] MEDS ORDERED: VANCOMYCIN HCL 0.75 GM in IV D5W 250 ML IV ONE (09:00)
[2020-10-27] MEDS: PANTOPRAZOLE 40 MG TABLET.DR PO SCH (09:07)
[2020-10-27] MEDS: LEVOTHYROXINE SODIUM 125 MCG TABLET PO SCH (09:07)
[2020-10-27] MEDS: LINAGLIPTIN 5 MG TABLET PO SCH (09:07)
[2020-10-27] MEDS: GABAPENTIN 100 MG CAPSULE PO SCH ×3 (09:08→17:40)
[2020-10-27] MEDS: ATORVASTATIN 10 MG TABLET PO SCH (09:08)
[2020-10-27] MEDS: CEFEPIME 1 GM in IV D5W 50 ML IV SCH (09:13)
[2020-10-27] MEDS: AMIODARONE HCL 200 MG TABLET PO SCH (09:16)
[2020-10-27] MEDS ORDERED: NEPRO VAN 237 ML CAN PO PRN (11:00)
--- NOTE | 2020-10-27 11:16 | NUR ---
RN Notes Reported hgb level 7.9 today, no s/sx of bleeding. Per MD hold heparin dose this AM.
[2020-10-27 12:00] VITALS: BP 100/32
[2020-10-27] MEDS: INSULIN REGULAR, HUMAN 100 UNIT/ML 3 ML VIAL SQ PRN ×2 (12:18→21:51)
[2020-10-27 16:00] VITALS: BP 97/39
--- NOTE | 2020-10-27 18:52 | NUR ---
RN Closing Notes Patient comfortably resting in bed at this time. No SOB, no respiratory distress. All due meds given. IV access on RUE intact and patent infusing 1/2 NS @75ml/hr. All needs met and attended to. Bed locked and is in lowest position, bed alarm on, call light within easy reach. Will endorse to incoming nurse for continuity of care.
--- NOTE | 2020-10-27 19:20 | NUR ---
RN NOTE RECEIVED PATIENT IN BED RESTING ALERT ORIENTEDX2 CONFUSED,MACEDONIAN SPEAKING OTHER NURSE ASSIST FOR TRANSLATION,ON 2L OXYGEN VIA NASAL CANNULA, O2:98%,IV SITE IS ON RIGHT UPPER ARM INTACT PATENT ON /2 NS IV HYDRATION 75CC/HR,LEFT UPPER ARM AV SHUNT FOR DIALYSIS,SAFETY MEASURE IMPLEMENT,CALL LIGHT WITHIN REACH,BED IN LOW POSITION AND LOCKED,BED ALARM IS ON,CONTINUE TO MONITOR.
[2020-10-27 20:00] VITALS: BP 142/51
--- NOTE | 2020-10-27 21:00 | NUR ---
RN NOTE HEPARIN ON [address] WALTERS ORDER CONTINUE TO MONITOR.
[2020-10-27] MEDS: IV 1/2NS 1000 ML 1,000 ML IV PRN (21:13)
[2020-10-27] MEDS: INSULIN GLARGINE, 100 UNIT/ML CARTRIDGE SQ SCH (21:51)
[2020-10-28] VITALS: BP 128/49
--- NOTE | 2020-10-28 03:00 | NUR ---
RN NOTE PATIENT REMOVED IV LINE, STARTED A NEW IV LINE ON RIGHT HAND #22 G NO INFILTRATION NO SWELLING NOTED CONTINUE TO MONITOR.
[2020-10-28 04:00] VITALS: BP 135/62
--- NOTE | 2020-10-28 07:03 | NUR ---
RN NOTE PATIENT REMAINS ON ALERT ORIENTED X2 CONFUSED VERBALLY RESPONSIVE ON 2L OXYGEN VIA NASAL CANNULA, NO SOB NOT ACUTE DISTRESS NOTED IV SITE IS ON RIGHT HAND INTACT PATENT ON IV HYDRATION 75CC/HR ALL DUE MEDS GIVEN MD ORDERED KEEP CLEAN AND DRY KEPT COMFORTABLE ALL NEEDS MET ENDORSE NEXT COMING SHIFT FOR CONTINUATION OF CARE.
--- NOTE | 2020-10-28 07:20 | NUR ---
RN NOTE PATIENT OBSERVED IN BED CONFUSE AT THIS TIME, ON O2 VIA NC @ 2LPM TOLERATING WELL O2 SAT OF 98%, WITH LEFT AV FISTULA, ON TELE MONITOR SR HR 71, TOTAL ASSIST WITH ADL, WITH RIGHT HAND G 22 IV SITE PATENT FLUSHING WELL, SAFETY MEASURES OBSERVED, BED WHEELS LOCK, CALL LIGHT WITHIN REACH, WILL CONTINUE TO MONITOR, .
[2020-10-28 07:30] LABS: BASOPHILS # (AUTO) 0.1 K/uL (0.0-0.2); BASOPHILS % (AUTO) 0.9 % (0.0-2.0); EOSINOPHILS % (AUTO) 2.5 % (0.0-6.0); HEMATOCRIT 24 % (39-51); HEMOGLOBIN 7.7 g/dL (13.5-17.5); LYMPHOCYTES # (AUTO) 0.9 K/uL (0.8-4.8); LYMPHOCYTES % (AUTO) 14.1 % (20.0-44.0); MEAN CORPUSCULAR HGB CONC 32 g/dl (31.0-36.0); MEAN CORPUSCULAR VOLUME 103 fL (80-96); MONOCYTES # (AUTO) 0.9 K/uL (0.1-1.30); MONOCYTES % (AUTO) 14.5 % (2.0-12.0); NEUTROPHILS # (AUTO) 4.4 K/uL (1.8-8.9); PLATELET COUNT (AUTO) 205 K/uL (150-450); RED BLOOD CELL COUNT(AUTO) 2.37 MIL/uL (4.5-6.0); WHITE BLOOD COUNT (AUTO) 6.5 K/uL (4.3-11.0)
[2020-10-28 07:40] LABS: ALBUMIN 2.8 g/dL (3.4-5.0); BILIRUBIN,TOTAL 0.5 mg/dL (0.2-1.0); CALCIUM, SERUM 8.8 mg/dL (8.5-10.1); MAGNESIUM 2.3 mg/dL (1.8-2.4); POTASSIUM 4.2 mmol/L (3.5-5.1); TOTAL PROTEIN, SERUM 7.6 g/dL (6.4-8.2)
[2020-10-28 07:50] LABS: CREATININE 8.6 mg/dL (0.6-1.3); PHOSPHORUS 8.1 mg/dL (2.5-4.9)
[2020-10-28] MEDS: BLOOD SUGAR DIAGNOSTIC 1 EACH STRIP IN SCH ×4 (08:22→22:20)
[2020-10-28] MEDS: INSULIN REGULAR, HUMAN 100 UNIT/ML 3 ML VIAL SQ PRN ×4 (08:23→22:43)
[2020-10-28] MEDS: GABAPENTIN 100 MG CAPSULE PO SCH ×3 (08:29→17:15)
[2020-10-28] MEDS: PANTOPRAZOLE 40 MG TABLET.DR PO SCH (08:29)
[2020-10-28] MEDS: LEVOTHYROXINE SODIUM 125 MCG TABLET PO SCH (08:29)
[2020-10-28] MEDS: CEFEPIME 1 GM in IV D5W 50 ML IV SCH (08:29)
[2020-10-28] MEDS: LINAGLIPTIN 5 MG TABLET PO SCH (08:29)
[2020-10-28] MEDS: CARVEDILOL 12.5 MG TABLET PO SCH ×2 (08:35→17:00)
[2020-10-28] MEDS: AMIODARONE HCL 200 MG TABLET PO SCH (08:36)
[2020-10-28] MEDS: ATORVASTATIN 10 MG TABLET PO SCH (08:40)
[2020-10-28] MEDS: HEPARIN SODIUM, PORCINE 5000 UNITS/1 ML VIAL SQ SCH ×2 (09:00→21:00)
[2020-10-28 09:58] VITALS: BP 108/66
--- NOTE | 2020-10-28 11:07 | NUR ---
RN NOTE PATIENT OBSERVED IN BED PULLED IV SITE, AND TRYING TO GET OUT OF BED NEARLY FELL DOWN, PATIENT WITH UNABLE TO AMBULATE AT THIS TIME AND IS CONFUSED, DR. BERNABE NOTIFIED PATIENT ON BILATERAL WRIST SOFT RESTRAINT.
[2020-10-28 12:00] VITALS: BP 107/65
--- NOTE | 2020-10-28 15:00 | NUR ---
RN NOTE PATIENT ON HD AT THIS TIME, TOLERATING WELL.
[2020-10-28] MEDS: EPOETIN ALFA-EPBX 4,000 UNIT/ML VIAL SQ SCH (15:11)
[2020-10-28 16:00] VITALS: BP 107/65
--- NOTE | 2020-10-28 17:15 | NUR ---
RN NOTE PATIENT ON HEMODIALYSIS, HOLD BLOOD PRESSURE MEDICATION, MADE AWARE.
--- NOTE | 2020-10-28 18:24 | NUR ---
RN NOTE PATIENT OBSERVED IN BED CONFUSE AT THIS TIME, ON O2 VIA NC @ 2LPM TOLERATING WELL O2 SAT OF 96%, WITH LEFT AV FISTULA, S/P HEMODIALYSIS TOLERATED WELL, PATIENT OBSERVED WITH BILATERAL SOFT WRIST RESTRAINS SKIN INTACT NO SKIN BREAKDOWN OBSERVED, TOTAL ASSIST WITH ADL, WITH RIGHT HAND G 22 IV SITE PATENT FLUSHING WELL, ACCU CHECK AC HS INSULIN GIVEN ORDERED, SAFETY MEASURES OBSERVED, BED WHEELS LOCK, CALL LIGHT WITHIN REACH, WILL CONTINUE TO MONITOR, WILL ENDORSE TO NOC SHIFT.
--- NOTE | 2020-10-28 18:30 | NUR ---
RN NOTE PATIENT ON TELE MONITOR SR HR OF 99.
--- NOTE | 2020-10-28 19:00 | NUR ---
RN NOTE RECEIVED PATIENT IN BED RESTING ALERT CONFUSED VERBALLY RESPONSIVE KAZAKH SPEAKING ONLY ANOTHER NURSE ASSIST FOR TRANSLATION,ON 2L OXYGEN VIA NASAL CANNULA, O2:99%,IV SITE IS ON RIGHT HAND INTACT PATENT AND LEFT UPPER ARM AV SHUNT FOR HD,PATIENT IS INCONTINENT BOWEL/BLADDER,SAFETY MEASURE IMPLEMENT CALL LIGHT WITHIN REACH,SOFT BILATERAL RESTRAIN IN PLACE,ASSESS EVERY 2 HOURS FOR CIRCULATION,AND OFFER FOOD AND LIQUID CONTINUE TO MONITOR.
[2020-10-28 20:00] VITALS: BP_SYST 140; BP_SYST 164; BP_DIAS 54; BP_DIAS 67
[2020-10-28] MEDS: INSULIN GLARGINE, 100 UNIT/ML CARTRIDGE SQ SCH (22:22)
[2020-10-28] MEDS ORDERED: EPOETIN ALFA (4000 UNIT) 4,000 UNIT/ML VIAL IV SCH (23:00)
[2020-10-29] VITALS: BP 154/68
[2020-10-29 04:00] VITALS: BP 141/54
--- NOTE | 2020-10-29 07:06 | NUR ---
RN NOTE PATIENT REMAINS ON ALERT CONFUSED VERBALLY RESPONSIVE ON 2L OXYGEN VIA NASAL CANNULA 02:99%,NO SOB NOT ACUTE DISTRESS NOTED IV SITE IS ON RIGHT HAND INTACT,ALL DUE MEDS GIVEN MD ORDERED KEPT CLEAN AND DRY ALL THE TIME,KEPT COMFORTABLE ALL NEEDS MET,ENDORSE NEXT COMING SHIFT FOR CONTINUATION OF CARE.
[2020-10-29 07:24] LABS: BASOPHILS # (AUTO) 0.1 K/uL (0.0-0.2); HEMATOCRIT 24 % (39-51); HEMOGLOBIN 7.8 g/dL (13.5-17.5); LYMPHOCYTES # (AUTO) 0.7 K/uL (0.8-4.8); MEAN CORPUSCULAR HGB CONC 33 g/dl (31.0-36.0); MEAN CORPUSCULAR VOLUME 102 fL (80-96); MONOCYTES # (AUTO) 0.9 K/uL (0.1-1.30); MONOCYTES % (AUTO) 13.1 % (2.0-12.0); NEUTROPHILS # (AUTO) 5.3 K/uL (1.8-8.9); NEUTROPHILS % (AUTO) 73.9 % (43.0-81.0); PLATELET COUNT (AUTO) 209 K/uL (150-450); RED BLOOD CELL COUNT(AUTO) 2.36 MIL/uL (4.5-6.0); WHITE BLOOD COUNT (AUTO) 7.2 K/uL (4.3-11.0)
[2020-10-29 07:52] LABS: ALBUMIN 2.9 g/dL (3.4-5.0); BILIRUBIN,TOTAL 0.5 mg/dL (0.2-1.0); CALCIUM, SERUM 9.1 mg/dL (8.5-10.1); CREATININE 6.1 mg/dL (0.6-1.3); MAGNESIUM 2.1 mg/dL (1.8-2.4); PHOSPHORUS 5.9 mg/dL (2.5-4.9); POTASSIUM 3.8 mmol/L (3.5-5.1); TOTAL PROTEIN, SERUM 7.8 g/dL (6.4-8.2)
[2020-10-29 08:00] VITALS: BP 137/62
[2020-10-29] MEDS: BLOOD SUGAR DIAGNOSTIC 1 EACH STRIP IN SCH ×4 (08:58→21:47)
[2020-10-29] MEDS: AMIODARONE HCL 200 MG TABLET PO SCH (09:00)
[2020-10-29] MEDS: CARVEDILOL 12.5 MG TABLET PO SCH ×2 (09:00→16:23)
[2020-10-29] MEDS: CEFEPIME 1 GM in IV D5W 50 ML IV SCH (09:03)
[2020-10-29] MEDS: INSULIN REGULAR, HUMAN 100 UNIT/ML 3 ML VIAL SQ PRN ×4 (09:05→21:51)
[2020-10-29] MEDS: ATORVASTATIN 10 MG TABLET PO SCH (09:05)
[2020-10-29] MEDS: GABAPENTIN 100 MG CAPSULE PO SCH ×3 (09:06→16:22)
[2020-10-29] MEDS: LINAGLIPTIN 5 MG TABLET PO SCH (09:06)
[2020-10-29] MEDS: LEVOTHYROXINE SODIUM 125 MCG TABLET PO SCH (09:06)
[2020-10-29] MEDS: PANTOPRAZOLE 40 MG TABLET.DR PO SCH (09:06)
[2020-10-29] MEDS: SEVELAMER CARBONATE 800 MG TABLET PO SCH ×3 (09:09→17:06)
[2020-10-29] MEDS: HEPARIN SODIUM, PORCINE 5000 UNITS/1 ML VIAL SQ SCH ×2 (10:11→21:42)
--- NOTE | 2020-10-29 10:26 | NUR ---
RN NOTE HGB OF 7.8 OK TO GIVE HEPARIN PER DR. HARRISON.
[2020-10-29 12:00] VITALS: BP 103/60
[2020-10-29 16:00] VITALS: BP 105/61
--- NOTE | 2020-10-29 18:55 | NUR ---
RN NOTE PATIENT OBSERVED IN BED CONFUSE AT THIS TIME, ON O2 VIA NC @ 2LPM TOLERATING WELL O2 SAT OF 96%, WITH LEFT AV FISTULA, PATIENT OBSERVED WITH BILATERAL SOFT WRIST RESTRAINS SKIN INTACT NO SKIN BREAKDOWN OBSERVED, TOTAL ASSIST WITH ADL, WITH RIGHT HAND G 22 IV SITE PATENT FLUSHING WELL, ACCU CHECK AC HS INSULIN GIVEN ORDERED, SAFETY MEASURES OBSERVED, BED WHEELS LOCK, CALL LIGHT WITHIN REACH, WILL CONTINUE TO MONITOR. WILL ENDORSE TO NOC SHIFT.
--- NOTE | 2020-10-29 19:30 | NUR ---
RN NOTE RECEIVED PT IN BED, LETHARGIC. AROUSABLE TO VERBAL AND TOUCH TACTILE, CONFUSED. NO DISTRESS NOTED. ON O2 VIA NC. PT WITH BILATERAL WRIST SOFT RESTRAINTS, CIRCULATION WNL. IV PATENT AND INTACT. AV SHUNT ON L ARM. NO BLEEDING NOTED. ALL SAFETY MEASURES IN PLACE PER PROTOCOL. WILL CONTINUE TO MONITOR.
[2020-10-29 20:00] VITALS: BP 151/68
[2020-10-29] MEDS: INSULIN GLARGINE, 100 UNIT/ML CARTRIDGE SQ SCH (21:49)
--- NOTE | 2020-10-29 22:10 | NUR ---
rn note pt awake, yelling out, confused. no distress noted. gave report to Peggy for continuity of care.
--- NOTE | 2020-10-29 22:15 | NUR ---
RN NOTE RECEIVED PATIENT IN BED RESTING CONFUSED,AWAKE,YELLING,ON 2L OXYGEN VIA NASAL CANNULA,IV SITE IS ON RIGHT HAND INTACT PATENT AND LEFT UPPER ARM AV SHUNT FOR DIALYSIS,BILATERAL SOFT WRIST RESTRAIN IN PLACE WILL CHECK EVERY 2 HOURS FOR CIRCULATION AND OFFER FOOD AND LIQUID,SAFETY MEASURE IMPLEMENT BED IN LOW POSITION AND LOCKED CONTINUE TO MONITOR.
[2020-10-30 04:00] VITALS: BP 128/81
--- NOTE | 2020-10-30 06:59 | NUR ---
RN NOTE PATIENT REMAINS ON ALERT CONFUSED VERBALLY RESPONSIVE ON 2L OXYGEN VIA NASAL CANNULA, O2:99% NO SOB NOT ACUTE DISTRESS NOTED, ALL DUE MEDS GIVEN MD ORDERED KEPT CLEAN AND DRY ALL THE TIME,PATIENT HAD DIALYSIS TODAY MD ORDERED,REPOSITIONED EVERY 2 HOURS ALL NEEDS MET ENDORSE NEXT COMING SHIFT FOR CONTINUATION OF CARE,
--- NOTE | 2020-10-30 07:21 | NUR ---
RN NOTE PATIENT IS IN BED WITH HOB AT SEMI GAMBLE'S POSITION. PATIENT IS AOX1 AND CONFUSED. PATIENT IS ON ROOM AIR WITH NO SIGNS OF LABORED BREATHING. BED IS LOCKED IN THE LOWEST POSITION, 3 GUARD RAILS RAISED, CALL DANIELLE WITHIN REACH, AND ALL HOSPITAL SAFETY PRECAUTIONS ARE BEING FOLLOWED. WILL CONTINUE TO MONITOR THROUGHOUT SHIFT.
[2020-10-30] MEDS: BLOOD SUGAR DIAGNOSTIC 1 EACH STRIP IN SCH ×3 (07:47→17:39)
[2020-10-30 08:00] VITALS: BP 128/100
[2020-10-30] MEDS: LEVOTHYROXINE SODIUM 125 MCG TABLET PO SCH (08:10)
[2020-10-30] MEDS: CEFEPIME 1 GM in IV D5W 50 ML IV SCH (08:10)
[2020-10-30] MEDS: SEVELAMER CARBONATE 800 MG TABLET PO SCH ×2 (08:10→12:03)
[2020-10-30] MEDS: ATORVASTATIN 10 MG TABLET PO SCH (08:10)
[2020-10-30] MEDS: GABAPENTIN 100 MG CAPSULE PO SCH ×3 (08:11→16:16)
[2020-10-30] MEDS: HEPARIN SODIUM, PORCINE 5000 UNITS/1 ML VIAL SQ SCH (08:11)
[2020-10-30] MEDS: LINAGLIPTIN 5 MG TABLET PO SCH (08:11)
[2020-10-30] MEDS: PANTOPRAZOLE 40 MG TABLET.DR PO SCH (08:12)
[2020-10-30] MEDS: AMIODARONE HCL 200 MG TABLET PO SCH (08:12)
[2020-10-30] MEDS: CARVEDILOL 12.5 MG TABLET PO SCH ×2 (08:12→16:15)
--- NOTE | 2020-10-30 09:30 | NUR ---
RN NOTE OKAY TO RENEW RESTRAINTS PER DR. VINSON.
[2020-10-30 10:21] LABS: IRON, SERUM 14 ug/dl (50-175); TOTAL IRON BINDING CAPACITY 102 ug/dl (250-450)
[2020-10-30 10:58] LABS: FERRITIN 1361 ng/mL (8-388)
[2020-10-30] MEDS: INSULIN REGULAR, HUMAN 100 UNIT/ML 3 ML VIAL SQ PRN ×2 (11:51→17:19)
[2020-10-30] MEDS ORDERED: LORAZEPAM INJ 2 MG/ML VIAL IV PRN (13:00)
[2020-10-30] MEDS: EPOETIN ALFA-EPBX 4,000 UNIT/ML VIAL SQ SCH (15:23)
[2020-10-30 16:00] VITALS: BP 115/52
[2020-10-30 16:15] VITALS: BP 115/52
[2020-10-30] MEDS ORDERED: ONDANSETRON HCL/PF 4 MG/2 ML VIAL ONE (17:11)
[2020-10-30] MEDS ORDERED: KETOROLAC TROMETHAMINE 15 MG/ML VIAL ONE (17:11)
== END 2020-10-30 17:59 | DRG 177 ==
LOC: TELE1 16:11 → MEDSG1 10-29 09:30
PROVIDERS: ATTEND Internal Medicine
PROC: 5A1D70Z Performance of Urinary Filtration, Intermittent, Less than 6 Hours Per Day (ICD-10-PCS; principal; 2020-10-26)
DX: J15.6 Pneumonia due to other Gram-negative bacteria (principal); G93.41 Metabolic encephalopathy; N18.6 End stage renal disease; I12.0 Hypertensive chronic kidney disease with stage 5 chronic kidney disease or end stage renal disease; J98.11 Atelectasis; J91.8 Pleural effusion in other conditions classified elsewhere; E03.9 Hypothyroidism, unspecified; E11.22 Type 2 diabetes mellitus with diabetic chronic kidney disease; I25.10 Atherosclerotic heart disease of native coronary artery without angina pectoris; K21.9 Gastro-esophageal reflux disease without esophagitis; Z20.822 Contact with and (suspected) exposure to COVID-19; D63.1 Anemia in chronic kidney disease; E78.5 Hyperlipidemia, unspecified; I48.0 Paroxysmal atrial fibrillation; E83.9 Disorder of mineral metabolism, unspecified; Z99.2 Dependence on renal dialysis; Z79.4 Long term (current) use of insulin; I25.2 Old myocardial infarction
CPT/HCPCS: 36415; 71045-TC; 71250-TC; 80048-TC; 80053-TC; 80061-TC; 80202-TC; 82728-TC; 82962-TC; 83540-TC; 83605-TC; 83735-TC; 83880; 84100-TC; 84443-TC; 84484-TC; 85025-TC; 87081-TC; 90935-TC; 97116-TC; 97530-TC; G0378; J0692; J0885; J1644; J1815; J1885; J2060; J2405; J3370; J3490; J7050; J7060; U0003